=== PATIENT | male | born 1960 | race African-American/Black ===

== ENCOUNTER 2021-04-28 10:22 | Emergency (ER) | payer OTHER ==
[~2021-04-28] VITALS: Ht 175.3 cm; Wt 82.0 kg
[~2021-04-28 10:22] MED LIST: ASPI-1497; HYDR12.518; LISINOPRIL
[2021-04-28 10:29] VITALS: BP 151/100
[2021-04-28] MEDS ORDERED: FLUT9.9S BOTHNSTRLS (10:45)
== END 2021-04-28 11:02 | disposition home or self-care (01) ==
LOC: ER 10:22
DX: Z20.822 Contact with and (suspected) exposure to COVID-19 (principal); I10 Essential (primary) hypertension
CPT/HCPCS: 99283; C9803; U0003; U0005

== ENCOUNTER 2022-08-24 14:01 | Emergency (ER) | payer MEDICAID, OTHER ==
[~2022-08-24] VITALS: Ht 177.8 cm; Wt 73.0 kg
[~2022-08-24 14:01] MED LIST changes: +FLUT9.9S BOTHNSTRLS
[2022-08-24 14:03] VITALS: BP 138/88
[2022-08-24 15:15] LABS: BASOPHILS % 0.7 % (0.0-2.0); EOSINOPHILS % 2.9 % (0.0-5.0); HEMATOCRIT. 39.7 % (42.0-52.0); LYMPHOCYTES % 21.1 % (20.0-50.0); MEAN CORPUSCULAR HEMOGLOBIN 27.9 pg (28.0-32.0); MEAN CORPUSCULAR VOLUME 85.3 fL (80.0-94.0); MEAN PLATELET VOLUME 8.2 fl (7.4-10.4); MONOCYTES % 8.9 % (2.0-8.0); NEUTROPHILS % 66.4 % (40.0-76.0); PLATELET 210 x1000/uL (130-400); RED BLOOD CELL COUNT 4.66 mill/uL (4.7-6.1)
[2022-08-24 15:24] LABS: CHLORIDE 108 mEq/L (98-107)
== END 2022-08-24 16:46 | disposition home or self-care (01) ==
LOC: ER 14:09
DX: R55 Syncope and collapse (principal); I10 Essential (primary) hypertension; E86.0 Dehydration
CPT/HCPCS: 36415; 71045; 80053; 83880; 84484; 85025; 93005; 99285

== ENCOUNTER 2023-01-21 15:27 | Emergency (ER) | payer MEDICAID, OTHER ==
[~2023-01-21] VITALS: Ht 175.3 cm; Wt 79.5 kg
[2023-01-21 15:51] VITALS: BP 163/113; PULSE 107; RESP 18; TEMP 98.2; O2SAT 99
[2023-01-21] MEDS ORDERED: PERM60CR4 TP (16:42)
== END 2023-01-21 17:29 | disposition home or self-care (01) ==
LOC: ER 15:27
DX: B86 Scabies (principal)
CPT/HCPCS: 99282

== ENCOUNTER 2023-11-28 23:38 | Emergency (ER) | payer OTHER ==
[~2023-11-28] VITALS: Ht 175.3 cm; Wt 76.0 kg
[~2023-11-28 23:38] MED LIST changes: +PERM60CR4 TP
[2023-11-28 23:51] VITALS: O2SAT 98
[2023-11-29] MEDS ORDERED: METH-653 MT (00:51)
[2023-11-29] MEDS ORDERED: LIDO700A15 TP (00:51)
[2023-11-29 02:00] VITALS: BP 165/103; PULSE 79; RESP 20; TEMP 98.4
== END 2023-11-29 02:03 | disposition home or self-care (01) ==
LOC: ER 23:38
DX: M54.2 Cervicalgia (principal); R51.9 Headache, unspecified; M54.9 Dorsalgia, unspecified; Z79.899 Other long term (current) drug therapy
CPT/HCPCS: 99283

== ENCOUNTER 2024-08-02 01:52 | Emergency (ER) | payer MEDICARE, MEDICAID ==
[~2024-08-02] VITALS: Ht 175.3 cm; Wt 84.0 kg
[~2024-08-02 01:52] MED LIST changes: +LIDO700A15 TP; +METH-653 MT
[2024-08-02 02:17] VITALS: TEMP 36.5; O2SAT 99
[2024-08-02 02:20] VITALS: BP 159/100; PULSE 62; RESP 17; O2SAT 99
[2024-08-02] MEDS ORDERED: 0.9126SP BOTHNSTRLS (02:45)
[2024-08-02] MEDS ORDERED: FLUT15.844 BOTHNSTRLS (02:45)
[2024-08-02] MEDS ORDERED: CETI10TA11 MT (02:48)
== END 2024-08-02 02:56 | disposition home or self-care (01) ==
LOC: ER 01:52
DX: R09.81 Nasal congestion (principal); I10 Essential (primary) hypertension; Z79.899 Other long term (current) drug therapy
CPT/HCPCS: 71045; 99283